=== PATIENT | male | born 1965 | race Caucasian/White ===

== ENCOUNTER 2018-11-30 15:07 | Inpatient (IN) | payer BC ==
[~2018-11-30] VITALS: Ht 185.4 cm; Wt 106.0 kg
[2018-12-25] VITALS (12 sets, daily range): BP systolic 93–139; BP diastolic 50–90; PULSE 59–97; TEMP 97–98.6
--- NOTE | 2018-12-25 06:25 | NUR ---
Patient admitted to the floor at 0545 for [facility] surgery with Dr. Nieves this morning. Admission B and assessment completed. Med-rec and allergies reviewed and confirmed. Patient denies taking any home medication. Prepared for surgery with no incidents; 18 g IV started to left hand, left hip scrubbed and marked for surgery, pedal pulses marked, LAURA hose applied to RLE and pre-op medications given. Patient sent down to surgery with Roel at this time.
--- NOTE | 2018-12-25 10:45 | NUR ---
PATIENT BACK IN ROOM 330 POST OP. A&O. VSS. DENIES PAIN IN LEFT, ONLY FEELS SOME SLIGHT BURNING. UNABLE TO MOVE LLE, CAN MOVE RLE. LTH DRESSING IS CD&I WITH OCCLUSIVE TAPE AND ICE PACK INPLACE. TEDS & SCD'S TO BLE. POSITIVE PEDAL PULSES TO BLE. PATIENT STRAIGHT CATHED IN PACU FOR 650CC. DENIES NEED TO VOID AT THIS TIME. IV FLUIDS INFUSING VIA PUMP INTO RIGHT HAND IV. NO C/O N/V. LIQUIDS AT BEDSIDE. HEAD TO TOE ASSESSMENT WNL. ORIENTED TO ROOM. FAMILY AT BEDSIDE. CALL LIGHT IN REACH.
--- NOTE | 2018-12-25 13:29 | NUR ---
SW student met with the patient and patients , Ama, about discharge planning. The patient lives in [place] with his . He reports independence with ADLs and has a cane and a shower chair. The patients PCP is Dr. Ryann Arce [facility] The patient reports no difficulties obtaining his medication. The patient does not have advanced directives in EMR but he states that he does have them completed and at home. The patient plans to return home with his upon discharge. No additional needs at this time.
--- NOTE | 2018-12-25 22:00 | NUR ---
Assessment completed. Patient is A&O x 4. VSS, on room air. Pain controlled at this time with oral pain regimen. Bulky foam tape dressing to left hip is CDI with a fresh ice pack placed to hip. Pedal pulses intact. BLE jermaine hose/scds on while in bed. Tolerating diet with no c/o nausea. Voiding with no difficulities. INT to left hand with good PO intake, using for intermittent antibiotic at this time. Patient did dangle on the edge of the bed this evening with assist x 2, once in the sitting position patient c/o feeling dizzy and warm. Assisted back into bed and positioned patient in trendelenburg, after a few minutes patient reported feeling better. Discussed ambulating again later if patient felt better and was agreeable to this. is at bedside. Denies any concerns or needs, call light is within reach.
--- NOTE | 2018-12-25 23:00 | NUR ---
Patient ambulated approximately 100 feet in the hallway with assist x 1 with walker and gait belt, gait steady. Reported that after ambulating his left hip felt much better as he had been laying in bed all day. remains at bedside. Denies any concerns or needs, call light is within reach.
[2018-12-26 04:39] VITALS: BP 133/73; PULSE 87; TEMP 97.2
--- NOTE | 2018-12-26 06:13 | NUR ---
HAS RESTED OFF AND ON THROUGH THE NIGHT. VS STABLE. DRESSING TO LEFT HIP DRY AND INTACT. FRESH ICE PACK APPLIED. SPOUSE AT BEDSIDE. VOIDING WITHOUT DIFFICULTY. DENIES ANY QUESTIONS OR CONCERNS AT THIS TIME. CALL LIGHT WITHIN REACH. BED IN LOW POSITION. WHEELS LOCKED.
--- NOTE | 2018-12-26 06:43 | NUR ---
RATING PAIN 8/10 BUT REFUSING IV PAIN MEDICATION STATING WILL WAIT FOR PO.
--- NOTE | 2018-12-26 07:00 | NUR ---
Report on to RNRomaine.
--- NOTE | 2018-12-26 07:15 | NUR ---
VS. Shift Assessment Charted. Pain 6/10, left hip, sharp while in bed. Pain increases during coughing and movement. Ice pack to left hip. SCD's on and working. INT to right hand, CDI. Educated about constipation, urination, diet, exercise, and pain meds and their effects on bowels. Patient is eating breakfast, resting comfortably, call light in reach. Bulk dressing, left hip, CDI.
--- NOTE | 2018-12-26 07:34 | NUR ---
Report from Anni GLOVER.
[2018-12-26 07:35] VITALS: BP 128/64; PULSE 82; TEMP 98.2
--- NOTE | 2018-12-26 10:11 | NUR ---
PT/OT. Patient ambulated the hallway and in his room. Patient voided in the toilet standing up. Patient tolerated activity well and is resting comfortably in his recliner. Bedside table and call light in reach.
--- NOTE | 2018-12-26 10:40 | NUR ---
Removed bulk dressing. 23 meera, approximating,very light sanguineous drainage on gauze pads, distal minimal reddness. Replaced bulk dressing with an auqua cell 3.5x10. Patient tolerated the procedure well, is resting comfortably in his recliner with an ice pack to his hip, legs are elevated with pillows, bedside table in reach with water, call light in reach.
--- NOTE | 2018-12-26 10:45 | NUR ---
VS charted. LAURA's removed. Tolerated procedure well, resting comfortably in recliner, feet elevated in recliner with pillows, bedside table in reach, has water, and call light in reach.
[2018-12-26 11:03] VITALS: BP 121/71; PULSE 82; TEMP 98.3
--- NOTE | 2018-12-26 11:30 | NUR ---
Reported off to Romaine GLOVER.
--- NOTE | 2018-12-26 12:04 | NUR ---
First visit from the conference specialist. No needs right now.
[2018-12-26 16:30] VITALS: BP 121/74; PULSE 86; TEMP 98.3
--- NOTE | 2018-12-26 18:50 | NUR ---
REPORT TO ADAM GLOVER,
[2018-12-26 20:00] VITALS: BP 128/76; PULSE 94; TEMP 98.8
--- NOTE | 2018-12-26 20:59 | NUR ---
UP TO BATHROOM AT THIS TIME WITH STAND BY ASSIST USING WALKER. TOLERATED WELL. UNMEASURED VOID.
--- NOTE | 2018-12-26 22:00 | NUR ---
ASSUMED CARE OF PATIENT FOR [employer]PER[employer]. ASSESSMENT COMPLETE. PLAN OF CARE DISCUSSED FOR THIS SHIFT-AMBULATION AND PAIN CONTROL. VS STABLE. SITTING UP IN CHAIR WITH AT BEDSIDE. UP TO BATHROOM AT THIS TIME WITH NO ASSISTANCE-TOLERATED WELL USING WALKER. C/O PAIN RATED 6/10 IN LEFT HIP. DESCRIBED CONSTANT ACHE WITH INTERMITTENT SHARP PAINS. ROXICODONE GIVEN PER DR ORDER. WILL MONITOR. EFFECTIVENESS. DENIES ANY OTHER QUESTIONS OR CONCERNS AT THIS TIME. WANTS TO SIT UP IN CHAIR UNTIL PAIN MEDICATIONS STARTS TO WORK-THEN WILL AMBULATE. INSTRUCTED TO CALL WHEN READY. CALL LIGHT WITHIN REACH. WILL MONITOR.
[2018-12-26 22:20] VITALS: BP 128/76; PULSE 91; TEMP 98.8
--- NOTE | 2018-12-26 23:55 | NUR ---
Patient ambulated approximately 100 feet in the hallway at this time with standby assist x 1, gait slow and steady. Assisted patient with repositioning into bed after ambulating and BLE scds applied. Denies any concerns or needs. remains at bedside. Bed is in a low position with call light in reach.
[2018-12-27 00:09] VITALS: BP 124/75; PULSE 95; TEMP 99.3
[2018-12-27 03:53] VITALS: BP 142/82; PULSE 100; TEMP 98.2
--- NOTE | 2018-12-27 04:34 | NUR ---
HAS RESTED OFF AND ON THROUGH THE NIGHT. C/O PAIN RATED 5/10-ROXICODONE 2 TABS GIVEN PO PER DR ORDER. AQUACELL DRESSING DRY AND INTACT. FRESH ICE PACK APPLIED. C/O SOME NUMBNESS TO LEFT FOOT. SCDS BILAT. LAURA HOSE ON. CALL LIGHT WITHIN REACH. BED IN LOW POSITION. WHEELS LOCKED. WILL MONITOR.
[2018-12-27] MEDS ORDERED: NORCO 325 MG-7.1 TAB PO (06:25)
[2018-12-27] MEDS ORDERED: XARELTO10 MG PO (06:25)
[2018-12-27] MEDS ORDERED: ROXICODONE 55 MG/TAB PO (06:26)
--- NOTE | 2018-12-27 07:07 | NUR ---
Report from Anni GLOVER, Student nurse Keila working with patient.
[2018-12-27 07:08] VITALS: BP 120/73; PULSE 96; TEMP 98.8
--- NOTE | 2018-12-27 07:09 | NUR ---
Patient up in bed, ordered breakfast, Raghav Subramanian and Dr Nieves rounded on patient this am. Plan on discharge after [employer] work with pateint this am. Dressing to left hip cdi.
--- NOTE | 2018-12-27 07:24 | NUR ---
PT sitting in bed with in room. Pt reports pain at a 5/10 and requests something for the pain before PT. PT states ready to go home as soon as possible after physical therapy visits. Pt ordered breakfast. Assessment as charter. VSS. No further needs stated. call light within reach.
--- NOTE | 2018-12-27 09:24 | NUR ---
Dressing change performed. Incision was well approximated & clean, dry, and intact. Misty were intact. Patient tolerated well.
--- NOTE | 2018-12-27 13:11 | NUR ---
discharge instructions provided and questions solicited and answered. Int discontinued by RN students. Pt to front by wheel chair.
== END 2018-12-27 13:13 | disposition home or self-care (01) | DRG 470 ==
LOC: JCC 12-25 05:35
PROVIDERS: ADMIT Orthopaedic Surgery
PROC: 0SRB0JA Replacement of Left Hip Joint with Synthetic Substitute, Uncemented, Open Approach (ICD-10-PCS; principal; 2018-12-25 07:30)
DX: M16.12 Unilateral primary osteoarthritis, left hip (principal); G89.18 Other acute postprocedural pain; Z72.0 Tobacco use
CPT/HCPCS: A9284; C1713; C1776; J0360; J0690; J1100; J2250; J2405; J2704; J3010; J7042; J7120

== ENCOUNTER → 2018-12-21 | Outpatient (CLI) | payer BC | LOC: COL.LAB 09:53 | DX: Z01.812 Encounter for preprocedural laboratory examination (principal) ==

== ENCOUNTER → 2019-01-08 | Outpatient (CLI) | payer BC ==
[~2019-01-08] MED LIST: NORCO 325 MG-7.1 TAB PO; ROXICODONE 55 MG/TAB PO; XARELTO10 MG PO
== END ==
LOC: COL.VAS 12:47
DX: M79.89 Other specified soft tissue disorders (principal)